=== PATIENT | female | born 1985 | race Caucasian/White ===

== ENCOUNTER 2018-05-21 11:30 | Inpatient (IN) ==
[2018-05-21] MEDS ORDERED: OXYTOCIN/DEXTROSE 5%-WATER 30 UNITS/500 ML BAG IV ONE ×2 (11:46→17:54)
[2018-05-21] MEDS ORDERED: fentaNYL CITRATE/PF 50 MCG/ML AMPUL ONE (11:46)
[2018-05-21] MEDS ORDERED: ONDANSETRON HCL/PF 2 MG/ML VIAL IV PRN ×2 (11:46→12:28)
[2018-05-21] MEDS ORDERED: RINGER'S SOLUTION,LACTATED 1,000 ML IV ONE (11:46)
[2018-05-21] MEDS ORDERED: DEXTROSE 5%-LACTATED RINGERS 1,000 ML IV PRN (11:46)
--- NOTE | 2018-05-21 12:03 | ANES ---
Anesthesia Pre Procedure Eval Vitals/Labs: Last Vital Signs Temp 36.4 C 05/21/18 11:48 Pulse 88 05/21/18 11:48 Resp 22 H 05/21/18 11:48 BP 161/88 H 05/21/18 11:48 Pulse Ox 98 05/21/18 11:48 HOME MEDICATIONS acetaminophen 325 mg tablet 650 mg PO Q4H PRN tab 01/23/18 [Last Taken Unknown] vitamin,calcium,ktgzpiqq-mvym-bakfm acid tablet 1 tab PO DAILY 01/23/18 [Last Taken Unknown] ferrous sulfate 325 mg (65 mg iron) tablet 325 mg PO DAILY PRN tab 03/26/18 [Last Taken Unknown] Allergies/Adverse Reactions: Allergies Allergy/AdvReac Type Severity Reaction Status Date / Time Penicillins Allergy Mild Hives Verified 05/21/18 11:45 ceftriaxone sodium AdvReac Mild rash, Verified 05/21/18 11:45 [From Rocephin] itching - Planned Procedure Planned Procedure: ACTIVE LABOR Medication List Reviewed:: Yes Allergies Verified: Yes Medical History (Last Reviewed 05/21/18 @ 12:02 by Sunday Duffy CRNA) Abnormal Pap smear of cervix pt unsure of dates, f/u pap smears WNL Chronic pain syndrome Back Hiatal hernia History of heart murmur in childhood Psoriasis Radiculopathy of lumbar region Onset Date: ~09/2014 L4-Dr. Hollins Surgical History (Last Reviewed 05/21/18 @ 12:02 by Sunday Duffy CRNA) H/O lumbar discectomy Onset Date: ~09/2014 History of endoscopy Onset Date: ~2005 History of lumbar laminectomy Onset Date: ~09/2014 Left L3-L4. Dr. Hollins History of tonsillectomy Onset Date: ~1999 Family History (Last Reviewed 05/21/18 @ 12:02 by Sunday Duffy CRNA) Father Unknown family medical history Mother COPD (chronic obstructive pulmonary disease) Hypertension Bipolar disorder - Family Anesthesia History Family History:: no untoward family reactions to anesthesia, no familial bleeding tendencies, no family history of clotting disorders, no family history of premature - Airway/Neck/Teeth Within Normal Limits:: Yes Teeth Condition: Intact Neck Exam: non-tender, full range of motion Mallampatti Score: 2 Thyromental (T-M) distance: > 6 cm Mandibulo Hyoid distance: > 3 cm - Respiratory Respiratory: chest non-tender, lungs clear Discussed smoking cessation including day of surgery: No Sleep Apnea currently treated: No Sleep Apnea by current assessment: No - Cardiovascular Patient History - Cardiac/Respiratory: No pertinent hx Tolerates Activity: Good Heart Sounds: S1 & S2, Regular - Anesthesia Assessment and Plan ASA Class: PS, II, E Anesthesia Type Plan: Epidural - Called as urgent, documentation deferred until after procedure
--- NOTE | 2018-05-21 12:05 | ANES ---
Anesthesia Procedure Note Procedure Note: ANESTHESIA PROCEDURE NOTE Date of Procedure: 05/21/2018 Time of procedure: 11:40 AM. Performed by: Sunday Duffy CRNA, MSN Senior Courtroom Clerk: Zoe Olson RN. Preprocedure diagnosis: Active labor, labor pain. Post procedure diagnosis: Same. Procedure:Epidural for labor analgesia L4 5. Indications: Labor pain. Findings: See below. Details of the procedure: The patient was placed on the side of the bed in sitting positionand prepped with DuraPrep then draped in a sterile fashion. Lidocaine 1% was infiltrated to the skin and subcutaneous tissues at the level of the L4 5 interspace. An 18-gauge Touhy needle was used to approach the epidural space with loss of resistance technique. Once loss of resistance was achieved a 27-gauge spinal needle was passed through the epidural needle and CSF was contacted. After CSF returned, 20 mcg of fentanyl was injected in the spinal needle was removed the epidural catheter was then threaded approximately 4 cm in the epidural needle was removed. The catheter was taped in place and after careful aspiration 3 mL of 1.5% lidocaine with 1-200,000 epinephrine was injected without change in maternal heart rate or sensorium. . EBL: Minimal. Fluids: N/A. Specimen: N/A. Post procedure condition: The patient tolerated the procedure well with good relief. No complications were noted. Thank you for this consultation. Sunday Duffy CRNA, MSN
--- NOTE | 2018-05-21 12:15 | ANES ---
Post Anesthesia Assessment - Vital Signs Vitals: Last Vital Signs Temp 36.4 C 05/21/18 11:48 Pulse 88 05/21/18 11:48 Resp 22 H 05/21/18 11:48 BP 161/88 H 05/21/18 11:48 Pulse Ox 98 05/21/18 11:48 Airway Patency: Normal - Mental Status Level Of Consciousness: Awake, Alert - Pain Level Pain Score: 0 - N/V Assessment Nausea/Vomiting Presence: None Dehydration:: No
--- NOTE | 2018-05-21 12:15 | ANES ---
Post Anesthesia Discharge - Transfer of Care Transfer of Care handoff given to nurse: Yes - Discharge from PACU Discharge from PACU when meets criteria: Yes - Comfortable post epidural
[2018-05-21] MEDS ORDERED: NALOXONE HCL 1 MG/1 ML SYRG IV PRN (12:28)
[2018-05-21] MEDS ORDERED: BUPIVACAINE HCL/0.9 % NACL/PF 250 ML EP PRN (12:28)
[2018-05-21] MEDS ORDERED: fentaNYL CITRATE/PF 50 MCG/ML AMPUL IT SCH (12:30)
--- NOTE | 2018-05-21 12:33 | HP ---
Chief Complaint - Chief Complaint Date of Service: 05/21/18 Time of Service: 12:24 Chief Complaint: contractions History of Present Illness: 32 yo at 38 2/7 wks presents with complaint of painful frequent contractions since around 0900 this am. This complicated by S>D and h/o malrotated bowel with first . Rh positive Rubella immune GBS negative Medical History (Last Reviewed 05/21/18 @ 12:30 by Landry Kimble DO) Abnormal Pap smear of cervix pt unsure of dates, f/u pap smears WNL Chronic pain syndrome Back Hiatal hernia History of heart murmur in childhood Psoriasis Radiculopathy of lumbar region Onset Date: ~09/2014 L4-Dr. Hollins Surgical History: Surgical History (Last Reviewed 05/21/18 @ 12:30 by Landry Kimble DO) H/O lumbar discectomy Onset Date: ~09/2014 History of endoscopy Onset Date: ~2005 History of lumbar laminectomy Onset Date: ~09/2014 Left L3-L4. Dr. Hollins History of tonsillectomy Onset Date: ~1999 Family History: Family History (Last Reviewed 05/21/18 @ 12:30 by Landry Kimble DO) Father Unknown family medical history Mother COPD (chronic obstructive pulmonary disease) Hypertension Bipolar disorder Social History: Preferred Language Lao (Last Reviewed 05/21/18 @ 11:31 by Denilson Murillo) No Social History Section defined Review Of Systems (GEN) - Review of Systems Generalized/Overall Review: Present: No Symptoms Reported EENTM: Present: No Symptoms Reported Respiratory: Present: No Symptoms Reported Cardiac: Present: No Symptoms Reported Abdominal: Present: Other - contractions Genitourinary: Present: No Symptoms Reported Musculoskeletal: Present: No Symptoms Reported Neurological: Present: No Symptoms Reported Skin: Present: No Symptoms Reported Endocrine: Present: No Symptoms Reported Allergies/Adverse Reactions: Allergies Allergy/AdvReac Type Severity Reaction Status Date / Time Penicillins Allergy Mild Hives Verified 05/21/18 11:45 ceftriaxone sodium AdvReac Mild rash, Verified 05/21/18 11:45 [From Rocephin] itching Home Medications: HOME MEDICATIONS acetaminophen 325 mg tablet 650 mg PO Q4H PRN tab 01/23/18 [Last Taken Unknown] vitamin,calcium,todabqyc-eeli-xeyll acid tablet 1 tab PO DAILY 01/23/18 [Last Taken Unknown] ferrous sulfate 325 mg (65 mg iron) tablet 325 mg PO DAILY PRN tab 03/26/18 [Last Taken Unknown] Exam - Exam Vital Signs: Vital Signs - Last Taken Temp 36.4 C 05/21/18 11:48 Pulse 88 05/21/18 11:48 Resp 22 H 05/21/18 11:48 BP 161/88 H 05/21/18 11:48 Pulse Ox 98 05/21/18 11:48 Constitutional: Present: Alert, Oriented x3, Cooperative, Moderate distress ENT Exam: Present: hearing grossly normal Breasts: Present: Exam deferred Respiratory: Present: lungs clear, no respiratory distress Cardiovascular/Chest: Present: regular rate, rhythm, no edema Abdomen: Present: soft, nontender, no rebound tenderness, other - gravid /Rectal: Present: Other - /-2 Extremity: Present: no pedal edema, no calf tenderness Skin Exam: Present: normal color, warm/dry, no cyanosis Neurologic: Present: alert, oriented x 3, other - anxious and in pain Appearance: Present: appropriate appearance, appropriate insight Eye contact: Present: cooperative, good eye contact Thoughts: Present: normal thought pattern Assessment/Plan - Assessment/Plan (1) Labor established Assessment: Admit for routine management of labor. Epidural PRN. Pitocin PRN. Problem: Acute
--- NOTE | 2018-05-21 12:35 | PN ---
Progess Note - Interim Date: 05/21/18 Time: 12:33 Narrative: 05/21/18 12:33 Patient comfortable with epidural Vital signs stable, but some of her blood pressures elevated possibly due to pain. FHT: 135 baseline, reassuring Contractions q 2-3 min Cervix: 9/90/-2, AROM at 1209 clear fluid Impression: Intrauterine at at 38 2/7 weeks in labor Plan: Continue present plan. Monitor blood pressures closely and observe for signs symptoms of preeclampsia.
[2018-05-21] MEDS ORDERED: GLYCERIN/WITCH HAZEL LEAF 40 APPL BOX TP PRN (17:54)
[2018-05-21] MEDS ORDERED: BISACODYL 10 MG SUPP.RECT RC PRN (17:54)
[2018-05-21] MEDS ORDERED: BENZOCAINE/MENTHOL 81 SPRAY CAN TP PRN (17:54)
[2018-05-21] MEDS ORDERED: oxyCODONE HCL/ACETAMINOPHEN 1 TAB TABLET PO PRN (17:54)
[2018-05-21] MEDS ORDERED: HYDROCORTISONE 30 APPL TUBE TP PRN (17:54)
[2018-05-21] MEDS ORDERED: SENNOSIDES 8.6 MG TABLET PO PRN (17:54)
[2018-05-21] MEDS: IBUPROFEN 800 MG TABLET PO PRN (18:14)
[2018-05-21] MEDS: oxyCODONE HCL/ACETAMINOPHEN 1 TAB TABLET PO PRN (18:14)
--- NOTE | 2018-05-21 19:08 | OR ---
Operative Report - Dictated Report Narrative: Indication: Suspicion of potential/immediate compromise Pre Procedure Patient was counseled to the risk, benefits, and alternatives to operative vaginal delivery. All questions were answered. Patient consented to proceed with operative vaginal delivery. heart rate interpretation: Prolonged deceleration with heart tones 70-90 bpm, EFW 3500 g, station +2, Position of head NATALIE, Anesthesia: epidural Cervix was completely dilated and effaced, maternal- size appropriate for application, bladder was emptied Procedure Gamble/Luikart forceps easily applied, hinge/lock approximated without difficulty, one pull of moderate intensity with advancement in station, degree of rotation 0-45 Post Procedure Viable male born at 1543 on 05/21/2017 with Apgars 8 and 9, weighing 3815 g in NATALIE position. Cord gases not collected, Placenta spontaneously delivered, EBL 150 mL, small erythema over left brow/eye, no shoulder dystocia Lacerations: none History for MU Definition: * The number of deliveries resulting in a live the patient experienced prior to current hospitalization * The previous delivery of live twins or any live multiple gestation is considered one live event. *If primagravida or nulliparous is documented select zero for the number of previous live births. Live Events: 1
[2018-05-22] MEDS: oxyCODONE HCL/ACETAMINOPHEN 1 TAB TABLET PO PRN ×4 (01:19→17:20)
[2018-05-22] MEDS: IBUPROFEN 800 MG TABLET PO PRN ×3 (01:19→17:20)
[2018-05-22] MEDS: DOCUSATE SODIUM 100 MG CAPSULE PO SCH ×4 (01:21→20:18)
--- NOTE | 2018-05-22 12:27 | PN ---
Subjective - Date and Time Seen Date: 05/22/18 Time: 12:27 Objective - Vitals Vitals: Last Vital Signs Temp 36.2 C 05/22/18 11:18 Pulse 79 05/22/18 11:18 Resp 12 05/22/18 11:18 BP 118/60 05/22/18 11:18 Pulse Ox 97 05/22/18 11:18 Patient denies complaints. Lochia wnl Abdomen - soft, nontender Uterus - firm, at umbilicus - 1 No calf tenderness Impression: day #1 - s/p spontaneous vaginal delivery. Plan: Continue routine care Cauti Physician Documentation - Urinary Catheter Management Urethral (Hui) Date of Insertion: 05/21/18 Time of Insertion: 14:58 Date of Removal: 05/21/18 Time of Removal: 15:35 Assessment/Plan - Problems/Diagnosis (1) Labor established Problem: Acute
[2018-05-23] MEDS: oxyCODONE HCL/ACETAMINOPHEN 1 TAB TABLET PO PRN ×2 (01:31→13:05)
[2018-05-23] MEDS: IBUPROFEN 800 MG TABLET PO PRN ×2 (01:31→13:05)
--- NOTE | 2018-05-23 08:49 | PN ---
Subjective - Date and Time Seen Date: 05/23/18 Time: 08:49 Objective - Vitals Vitals: Last Vital Signs Temp 36.3 C 05/23/18 01:33 Pulse 74 05/23/18 01:33 Resp 20 05/23/18 01:33 BP 160/72 H 05/23/18 01:33 Pulse Ox 98 05/23/18 01:33 Patient denies complaints. Bottle feeding. Lochia wnl Abdomen - soft, nontender Uterus - firm, at umbilicus - 2 No calf tenderness Impression: day #2 - s/p spontaneous vaginal delivery. Plan: Routine discharge instructions Cauti Physician Documentation - Urinary Catheter Management Urethral (Hui) Date of Insertion: 05/21/18 Time of Insertion: 14:58 Date of Removal: 05/21/18 Time of Removal: 15:35 Assessment/Plan - Problems/Diagnosis (1) Labor established Problem: Acute
[2018-05-23] MEDS: DOCUSATE SODIUM 100 MG CAPSULE PO SCH (10:14)
[2018-05-23 10:19] VITALS: BP 139/62
== END 2018-05-23 13:10 | disposition home or self-care (01) | DRG 807 ==
LOC: OB 11:30
PROVIDERS: ADMIT Obstetrics & Gynecology; ATTEND Obstetrics & Gynecology
CPT/HCPCS: 59025